=== PATIENT | male | born 1950 | race Caucasian/White ===

== ENCOUNTER 2022-02-09 13:30 | Outpatient (CLI) | payer OTHER, SELFPAY | END 2022-02-09 13:31 | disposition home or self-care (01) | PROVIDERS: PCP Family Medicine; Visit Provider Family Medicine | DX: M51.36 Other intervertebral disc degeneration, lumbar region (principal); M54.16 Radiculopathy, lumbar region | CPT/HCPCS: 62323; J0702; Q9966 ==

== ENCOUNTER 2022-08-24 09:08 | Outpatient (CLI) | payer OTHER, SELFPAY | END 2022-08-24 09:09 | disposition home or self-care (01) | LOC: INJ CL 09:09 | PROVIDERS: PCP Family Medicine; Visit Provider Family Medicine | DX: M54.16 Radiculopathy, lumbar region (principal); M51.36 Other intervertebral disc degeneration, lumbar region | CPT/HCPCS: 64483; J1100; Q9966 ==

== ENCOUNTER 2022-12-16 16:01 | Emergency (ER) | payer OTHER, SELFPAY ==
[2022-12-16 16:10] VITALS: BP 165/83; PULSE 52; RESP 24; TEMP 36; O2SAT 96; BMI 30.7
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
--- NOTE | 2022-12-16 16:52 | CRLHL7_ITS ---
For Patients: As a result of the Century Cures Act, medical imaging exams and procedure reports are released immediately into your electronic medical record. You may view this report before your referring provider. If you have questions, please contact your health care provider. INDICATION: Severe low left abdominal and inguinal pain TECHNIQUE: Axial images were obtained from the diaphragm to the pubic symphysis. Reformats were obtained in the coronal and sagittal plane. IV Contrast: 100 cc Isovue 370 Oral Contrast: None COMPARISON: None. FINDINGS: Lower chest: Minimal bibasilar discoid atelectasis. Liver: Liver is normal in contour with a 2.0 centimeter cyst within the right lobe of the liver. Gallbladder and bile ducts: Unremarkable. No stones or inflammation. No biliary dilatation. Spleen: Unremarkable. Normal in size without mass. Pancreas: Unremarkable. No mass or inflammation. Adrenal glands: Unremarkable. No nodules. Kidneys: Symmetric renal enhancement with extensive nephrolithiasis and renal cysts. Moderate left hydronephrosis with obstructing stone involving the distal left ureter measuring 5 x 4 x 9 millimeters. No hydronephrosis on the right. Vasculature: Atherosclerosis without abdominal aortic aneurysm. Status post inferior vena cava filter. Mild gastroepiploic and perigastric varices. GI tract: Stomach is decompressed. No dilated loops of large or small intestine with a large amount of stool noted within the colon. Mild colonic diverticulosis. Pelvis: Fat containing right direct inguinal hernia. Bones: Status post plate and screw fixation of the left acetabulum and left superior pubic ramus. IMPRESSION: 1. Nephrolithiasis with moderate left hydronephrosis and obstructing distal left ureteral stone measuring 5 x 4 x 9 millimeters. 2. Mild colonic diverticulosis. Please note that all CT scans at this facility use dose modulation, iterative reconstruction, and/or weight-based dosing when appropriate to reduce radiation dose to as low as reasonably achievable. Dictated by Kenyon Foy MD @ 12/16/2022 7:19:14 PM (Electronically Signed)
[2022-12-16] MEDS: 0.9 % SODIUM CHLORIDE 1000 ml 1,000 ML IV (17:05)
[2022-12-16] MEDS: KETOROLAC 30 MG/ML inj IVP (17:09)
[2022-12-16] MEDS: ONDANSETRON 2 MG/ML inj 4 MG IVP (17:11)
[2022-12-16] MEDS: fentaNYL 100 MCG/2 ML inj 50 MCG IVP (17:12)
[2022-12-16 17:16] VITALS: O2SAT 99
[2022-12-16 17:23] LABS: Lactate* 2.5 mmol/L (0.5-1.9)
[2022-12-16 17:24] LABS: Basophils Percent Auto 0.3 % (0.0-3.0); Eosinophils Percent Auto 1.2 % (0.0-7.0); Hematocrit 50.4 % (37.0-53.0); Hemoglobin* 16.9 gm/dL (13.5-17.5); Immature Granulocytes Pct Auto 0.4 %; Lymphocytes Percent Auto 16.3 % (20-44); Mean Corpuscular HGB Conc 34 gm/dL (32-36); Mean Corpuscular Hemoglobin 31 pg (26-34); Mean Corpuscular Volume 94 fL (80-100); Monocytes Percent Auto 5.7 % (0.0-11.0); Neutrophils Percent Auto 76.1 % (42.0-72.0); Platelet Count* 169 K/uL (140-440); RDW Coefficient of Variation % 12.6 % (11.5-15.5); Red Blood Count 5.38 m/uL (4.30-5.90); White Blood Count* 13.62 K/uL (4.50-11.00)
[2022-12-16 17:36] LABS: Slide Review Reflex No
[2022-12-16 17:42] LABS: Chloride* 106 mmol/L (96-114); Sodium* 139 mmol/L (135-149)
[2022-12-16 17:45] LABS: Creatinine* 1.2 mg/dL (0.5-1.5); Est. Creatinine Clearance* 61.01; Estimated Glomerular Filt Rate 65 ml/min
[2022-12-16 17:46] LABS: Blood Urea Nitrogen* 17 mg/dL (7-30); Calcium* 11.3 mg/dL (8.4-10.6); Carbon Dioxide* 24 mmol/L (20-32); Glucose* 152 mg/dL (60-115)
[2022-12-16 19:17] VITALS: BP 152/87; PULSE 72; RESP 18; O2SAT 97
[2022-12-16 19:18] LABS: Appearance Urine Cloudy (Clear); Bilirubin Urine 1+ (Negative); Blood Urine 3+ (Negative); Color Urine Dark yellow (Yellow); Glucose Urine Negative (Negative); Ketones Urine Trace (Negative); Leukocyte Esterase Urine Trace (Negative); Nitrite Urine Negative (Negative); Protein Urine 2+ (Negative); Specific Gravity Urine >= 1.030 (1.000-1.030); Urobilinogen Urine 0.2 (0.2-1.0); pH Urine 5.5 (5.0-8.5)
[2022-12-16 19:28] LABS: Bacteria Urine Few; RBC Urine 25-50 (0-2)
[2022-12-16 19:29] LABS: Calcium Oxalate Crystals Urine Few
[2022-12-16 20:34] VITALS: BP 167/87; PULSE 66; RESP 18; TEMP 36.1; O2SAT 98
[2022-12-16] MEDS: TAMSULOSIN HCL 0.4 MG CAPSULE PO (20:44)
== END 2022-12-16 21:04 | disposition home or self-care (01) ==
PROVIDERS: Emergency Provider Family Medicine; PCP Family Medicine
DX: N20.1 Calculus of ureter (principal); K59.00 Constipation, unspecified
CPT/HCPCS: 36415; 74177; 80048; 81001; 83605; 85025; 86140; 87086; 94761; 96374; 96375; 99284; A9270; J1885; J2405; J3010; J7030; Q9967

== ENCOUNTER 2023-03-14 08:54 | Outpatient (CLI) | payer OTHER, SELFPAY ==
--- NOTE | 2023-03-14 08:45 | CRLHL7_ITS ---
For Patients: As a result of the Century Cures Act, medical imaging exams and procedure reports are released immediately into your electronic medical record. You may view this report before your referring provider. If you have questions, please contact your health care provider. CLINICAL HISTORY: hx of left kidney stones, surgical removal and stent placed/removed. continued pain. COMPARISON: CT 12/16/2022 TECHNIQUE: Hahn scale and color Doppler images were acquired of the kidneys and urinary bladder. FINDINGS: Resolution of previously noted left-sided hydronephrosis. Bilateral renal stones are again noted. Stones on the right measure up to 1.9 cm. Stones on the left measure up to 1.8 cm. The right kidney measures 13.7cm in length and the left kidney measures 13.4cm in length. The renal cortex appears of normal thickness. Multiple renal cysts are present measuring up to 2.8 cm on the right and measuring 1.8 cm on the left. Normal color Doppler flow to both kidneys. The urinary bladder appears normal. Color Doppler images reveal a normal appearance of both ureteral jets. There is no evidence of bladder calculi or diverticula. IMPRESSION: Clearing of previously noted left-sided hydronephrosis. Bilateral renal stones again noted. Incidental renal cysts. No perinephric fluid. Normal bladder. Dictated by Alexsander Renee MD @ 03/14/2023 11:26:46 AM (Electronically Signed)
== END 2023-03-14 08:55 | disposition home or self-care (01) ==
LOC: US 08:55
PROVIDERS: PCP Family Medicine; Visit Provider Urology
DX: N20.0 Calculus of kidney (principal)
CPT/HCPCS: 76770

== ENCOUNTER 2023-03-15 09:00 | Outpatient (RCR) | payer OTHER, SELFPAY | END 2023-05-31 09:31 | disposition home or self-care (01) | PROVIDERS: PCP Family Medicine; Visit Provider Nurse Practitioner Family | DX: M54.50 Low back pain, unspecified (principal); M25.552 Pain in left hip; M62.81 Muscle weakness (generalized); R29.3 Abnormal posture; Z51.89 Encounter for other specified aftercare | CPT/HCPCS: 97110; 97162; 97530 ==

== ENCOUNTER 2023-05-30 14:28 | Emergency (ER) | payer OTHER, SELFPAY ==
[2023-05-30 15:13] VITALS: BP 179/90; PULSE 73; RESP 26; TEMP 36.4; O2SAT 99
--- NOTE | 2023-05-30 15:49 | ED_ITS ---
HPI - General Adult General Time Seen by Provider: 15:49 Date Seen: 05/30/23 Chief complaint: Flank Pain Stated complaint: Sharp L side pain Time Seen by Provider: 05/30/23 15:48 Source: patient, family, RN notes reviewed and old records reviewed Mode of arrival: ambulatory Limitations: no limitations History of Present Illness HPI narrative: 72-year-old male lb in left left-sided flank pain. Patient has a history of kidney stones and has stenting and procedure schedule next that week for that. Patient presents today with left-sided low back pain and abdominal pain. Patient with prior history of left-sided back pain and has had what sounds like epidural injections as well as evaluation for an ablations done in the past, increased pain in this area today. He thinks he may have ?tweaked it? when working on the furnace a couple days ago. Takes oxycodone every 6 hours as needed and did take that prior to coming the emergency department. No bowel or bladder dysfunction, denies diarrhea constipation, denies radiation of pain into the leg, denies weakness or numbness of the leg. Related Data Home Medications Medication Instructions Recorded Confirmed oxycodone-acetaminophen 7.5 mg-325 1 tab PO QID PRN 12/16/22 12/16/22 mg tablet tramadol 50 mg tablet 50 mg PO Q6H PRN 12/16/22 12/16/22 Previous Rx's Medication Instructions Recorded ketorolac 10 mg tablet 10 mg PO QID PRN pain 5 days #20 12/16/22 tabs ondansetron 4 mg disintegrating 4 mg PO DAILY PRN nausea and 12/16/22 tablet vomiting #12 tabs oxycodone-acetaminophen 7.5 mg-325 1 - 2 tab PO Q6H PRN severe pain 12/16/22 mg tablet (Endocet) #15 tabs tamsulosin 0.4 mg capsule (Flomax) 0.4 mg PO DAILY #15 caps 12/16/22 cefdinir 300 mg capsule 300 mg PO Q12H 10 days #20 caps 05/30/23 Allergies Allergy/AdvReac Type Severity Reaction Status Date / Time No Known Drug Allergies Allergy Verified 05/30/23 17:30 PFSH PFSH Social History Smoking Status: Current some day smoker What tobacco products do you use: cigars Do you use any of these nicotine containing products: None Second hand tobacco smoke exposure: No How often do you have a drink containing alcohol: 4 or more times a week How many standard drinks containing alcohol do you have on a typical day: 3 or 4 How often do you have six or more drinks on one occasion: Less than monthly AUDIT-C Alcohol total score: 6 Non-prescribed substance use: marijuana (any form) service: Yes Exam Narrative: Exam Narrative: General: Well-developed and well-nourished, no acute distress Head: Atraumatic and normocephalic Eyes: Pupils are equal reactive, extraocular motions intact, conjunctiva clear ENT: External nose and ears are normal, posterior pharynx without erythema or exudate Neck: No midline cervical tenderness, full spontaneous range of motion the neck, trachea midline, no adenopathy Heart: Regular rate and rhythm no murmurs or thrills Lungs: Clear to auscultation bilaterally without wheezes or crackles Abdomen: LLQ tenderness and L low back tenderness Musculoskeletal: No tenderness, deformity, or edema Neurologic: Awake, alert, and oriented x3, no gross focal neurologic deficits, cranial nerves intact as tested Psych: Mood and affect are appropriate Skin: No rashes Const: Vital Signs, click to edit/add: Vital Signs - 24 hr 05/30/23 15:13 Temperature 97.5 F L Pulse Rate [Right Pulse Oximeter] 73 Respiratory Rate 26 H Blood Pressure [Ri ght Upper Arm] 179/90 H Pulse Oximetry 99 Oxygen Delivery Me thod Room Air Course Course ED Course: Patient seen examined, prior records reviewed. Patient with history of kidney stones and low back pain. Two known stones on the right for which he is getting treatment next week, pain today is left sided, which he has had in the past. May have sustained a mild injury while working on the furnace a couple days ago. No fever, no leg weakness, no decreased sensation. Some improvement with Toradol, labs and CT ordered along with Dilaudid IV. Patient sees Dr. Pineda at [facility]. Reevaluation(s) Time of Reevaluation #1: 18:14 Reevaluation #1: Labs independently interpreted by me with leukocytosis, stable hemoglobin, stable creatinine for the patient normal basic panel otherwise, urinalysis with blood and with white cells out of proportion to number of RBCs, nitrite negative. CT scan independently interpreted by me demonstrates left-sided hydronephrosis with cluster of stones in the left distal ureter. Will discuss with urology. Time of Reevaluation #2: 18:41 Reevaluation #2: Radiology interpretation of CT scan is reviewed: 1. Small stone in the left UVJ and stone or several stones in the distal left ureter causing left-sided hydronephrosis. 2. Bilateral nephrolithiasis. Infundibular stones in the right kidney appear to cause localized caliceal dilation. 3. Thickening of the wall of the right renal pelvis is likely due to inflammation however neoplasm cannot be excluded. As patient has bilateral stones with obstruction on the left and calyceal dilatation on the right, as well as signs of infection, will discuss with urology. Time of Reevaluation #3: 19:45 Reevaluation #3: Updated patient spouse with plan to hold in the emergency department until the morning and transfer to [facility] either for admission to [facility] floor with plan for urology consultation and stent placement, or to pre anesthesia care unit for stent placement. Patient initially was agreeable this plan, however after antibiotics were done he asked to be discharged. We discussed risks of discharge including please pain, missed opportunity to treat fever or i ntervening on emergent worsening condition. Patient verbalized understanding of this and wants leave against medical advice instead of waiting in the emergency department to be transferred to [place]. Consultations Consultation #1: Dr. Galloway, [place] [facility]- recommends transfer to [facility], antibiotics, NPO after midnight, and plan for stent tomorrow given new left-sided stones. Spoke with [facility], no beds available, patient on wait list but may not be able to be transferred tonight. Vital Signs Vital signs: Initial Vital Signs Temperature 97.5 F L 05/30/23 15:13 Temperature Source Oral 05/30/23 15:13 Pulse Rate 73 05/30/23 15:13 Pulse Rhythm Regular 05/30/23 15:13 Pulse Strength 3+ Normal 05/30/23 15:13 Respiratory Rate 26 H 05/30/23 15:13 Blood Pressure 179/90 H 05/30/23 15:13 Blood Pressure Mean 119 H 05/30/23 15:13 Pulse Oximetry 99 05/30/23 15:13 Oxygen Delivery Method Room Air 05/30/23 15:13 Vital Signs Temperature 97.5 F L 05/30/23 15:13 Pulse Rate 73 05/30/23 15:13 Respiratory Rate 26 H 05/30/23 15:13 Blood Pressure 179/90 H 05/30/23 15:13 Pulse Oximetry 99 05/30/23 15:13 Oxygen Delivery Method Room Air 05/30/23 15:13 Temperature 97.5 F L 05/30/23 15:13 Pulse Rate 73 05/30/23 15:13 Respiratory Rate 26 H 05/30/23 15:13 Blood Pressure 179/90 H 05/30/23 15:13 Pulse Oximetry 99 05/30/23 15:13 Oxygen Delivery Method Room Air 05/30/23 15:13 Medical Decision Making Lab Data Labs: Lab Results 05/30/23 05/30/23 Range/Units 15:51 16:00 WBC 12.75 H (4.50-11.00) K/uL RBC 5.52 (4.30-5.90) m/uL Hgb 17.0 (13.5-17.5) gm/dL Hct 51.0 (37.0-53.0) % MCV 92 (80-100) fL MCH 31 (26-34) pg MCHC 33 (32-36) gm/dL RDW Coeff of Melany 13.1 (11.5-15.5) % Plt Count 179 (140-440) K/uL Neut % (Auto) 81.9 H (42.0-72.0) % Lymph % (Auto) 12.3 L (20-44) % [place] % (Auto) 4.5 (0.0-11.0) % Eos % (Auto) 0.7 (0.0-7.0) % Baso % (Auto) 0.2 (0.0-3.0) % Neut # (Auto) 10.40 H (1.7-7.0) K/uL Lymph # (Auto) 1.60 (0.90-2.90) K/uL [place] # (Auto) 0.60 (0.00-0.90) K/UL Eos # (Auto) 0.10 (0.00-0.50) K/uL Baso # (Auto) 0.00 (0.00-0.30) K/uL Abs Immat Gran (auto) 0.10 (0.00-0.30) K/uL Imm/Tot Granulo (auto) 0.4 % Sodium 139 (135-149) mmol/L Potassium 4.1 (3.6-5.1) mmol/L Chloride 107 (96-114) mmol/L Carbon Dioxide 20 (20-32) mmol/L Anion Gap 12 (7-15) mEq/L BUN 19 (7-30) mg/dL Creatinine 1.2 (0.5-1.5) mg/dL Estimated GFR 65 ml/min Glucose 166 H (60-115) mg/dL Calcium 11.1 H (8.4-10.6) mg/dL Urine Color Yellow (Yellow) Urine Appearance Cloudy A (Clear) Urine pH 6.0 (5.0-8.5) Ur Specific [place] 1.025 (1.000-1.030) Urine Protein 3+ A (Negative) Urine Glucose (UA) Negative (Negative) Urine Ketones 2+ A (Negative) Urine Blood 2+ A (Negative) Urine Nitrite Negative (Negative) Urine Bilirubin Negative (Negative) Urine Urobilinogen 0.2 (0.2-1.0) Ur Leukocyte Esterase 3+ A (Negative) Urine RBC 10-25 A (0-2) Urine WBC 25-50 A (0-5) Ur Squamous Epith Cells Few (None-Few) Urine Bacteria Few A (None) Discharge Plan Discharge Clinical Impression: Urinary tract infection, Calculus of right kidney, Calculus of left ureter Patient Disposition: Left Against Medical Advice Condition: Stable Instructions: Urinary Tract Infection in Men (DC), Ureteral Stones (ED) Additional Instructions: Take antibiotics as prescribed. Follow-up with your urologist. If your pain increases, or you develop fever or other symptoms, return to the emergency department. If able, you should go to an emergency department where your urologist can see you, preferably [facility]. If you are unable to go that far, you can return to the [facility] at any time for care. You may take 1-1/2 tablet severe pain medicine if needed, or you may take 1 tablet every 4 hours Activity Level: Activity as Tolerated Discharge Diet: Regular Prescriptions: New cefdinir 300 mg capsule 300 mg PO Q12H 10 Days Qty: 20 0RF No Action tramadol 50 mg tablet 50 mg PO Q6H PRN oxycodone-acetaminophen 7.5-325 mg tablet 1 tab PO QID PRN ketorolac 10 mg tablet 10 mg PO QID PRN (Reason: pain) 5 Days Qty: 20 0RF tamsulosin [Flomax] 0.4 mg capsule 0.4 mg PO DAILY Qty: 15 0RF oxycodone-acetaminophen [Endocet] 7.5-325 mg tablet 1 - 2 tab PO Q6H PRN (Reason: severe pain) Qty: 15 0RF ondansetron 4 mg tablet,disintegrating 4 mg PO DAILY PRN (Reason: nausea and vomiting) Qty: 12 0RF Follow Up/Referrals: [place] Wise MD [Primary Care Provider] - Stand Alone [facility] Instructions
[2023-05-30] MEDS: KETOROLAC 15 MG/ML inj IVP (15:59)
[2023-05-30 16:11] LABS: Appearance Urine Cloudy (Clear); Bilirubin Urine Negative (Negative); Blood Urine 2+ (Negative); Color Urine Yellow (Yellow); Glucose Urine Negative (Negative); Ketones Urine 2+ (Negative); Leukocyte Esterase Urine 3+ (Negative); Nitrite Urine Negative (Negative); Protein Urine 3+ (Negative); Specific Gravity Urine 1.025 (1.000-1.030); Urobilinogen Urine 0.2 (0.2-1.0)
[2023-05-30 16:20] LABS: Basophils Percent Auto 0.2 % (0.0-3.0); Eosinophils Percent Auto 0.7 % (0.0-7.0); Immature Granulocytes Pct Auto 0.4 %; Lymphocytes Percent Auto 12.3 % (20-44); Mean Corpuscular HGB Conc 33 gm/dL (32-36); Mean Corpuscular Hemoglobin 31 pg (26-34); Mean Corpuscular Volume 92 fL (80-100); Monocytes Percent Auto 4.5 % (0.0-11.0); Neutrophils Percent Auto 81.9 % (42.0-72.0); Platelet Count* 179 K/uL (140-440); RDW Coefficient of Variation % 13.1 % (11.5-15.5); Red Blood Count 5.52 m/uL (4.30-5.90); White Blood Count* 12.75 K/uL (4.50-11.00)
[2023-05-30 16:21] LABS: Slide Review Reflex No
--- NOTE | 2023-05-30 16:28 | CRLHL7_ITS ---
For Patients: As a result of the Century Cures Act, medical imaging exams and procedure reports are released immediately into your electronic medical record. You may view this report before your referring provider. If you have questions, please contact your health care provider. INDICATION: Left lower quadrant pain, left low back pain, history of kidney stones TECHNIQUE: CT abdomen and pelvis acquired with 110 mL Isovue 370 IV contrast. COMPARISON: 12/16/[address] FINDINGS: Lower chest: Unremarkable. Liver: Right hepatic lobe cyst. Gallbladder and bile ducts: Unremarkable. No stones or inflammation. No biliary dilatation. Pancreas: Unremarkable. No mass or inflammation. Spleen: Unremarkable. Normal in size. No masses. Adrenal glands: Unremarkable. No nodules. Kidneys: Stone or stones in the distal left ureter measuring 4 mm in diameter and 18 mm in length. 3 mm left UVJ stone. Moderate left-sided hydronephrosis. Mild perirenal edema. Several stones in the lower pole of the left kidney. There are multiple dense stones within the right kidney including several in infundibula that appear to cause localized dilated calices in the upper and mid kidney. The largest is an upper pole infundibulum measuring 2.0 x 0.9 cm. Thickening of the wall of the right renal pelvis. GI tract: Mild colonic diverticulosis. No diverticulitis normal appendix. Vasculature: IVC filter in place. Mesenteric arteries are patent. Lymph nodes: No lymphadenopathy. Omentum/Peritoneum/Abdominal Wall: Small umbilical hernia containing a loop of small bowel. No free air or significant free fluid. Pelvis: Unremarkable. Bones: Left acetabular reconstruction. IMPRESSION: 1. Small stone in the left UVJ and stone or several stones in the distal left ureter causing left-sided hydronephrosis. 2. Bilateral nephrolithiasis. Infundibular stones in the right kidney appear to cause localized caliceal dilation. 3. Thickening of the wall of the right renal pelvis is likely due to inflammation however neoplasm cannot be excluded. 4. Umbilical hernia containing unobstructed small bowel. Please note that all CT scans at this facility use dose modulation, iterative reconstruction, and/or weight-based dosing when appropriate to reduce radiation dose to as low as reasonably achievable. Dictated by Brian Burch MD @ 05/30/2023 6:34:18 PM (Electronically Signed)
--- NOTE | 2023-05-30 16:28 | CRLHL7_ITS ---
For Patients: As a result of the Century Cures Act, medical imaging exams and procedure reports are released immediately into your electronic medical record. You may view this report before your referring provider. If you have questions, please contact your health care provider. INDICATION: Left low back pain. TECHNIQUE: Noncontrast CT lumbar spine. FINDINGS: Five lumbar vertebrae. No lumbar spine fracture. Mild to moderate endplate hypertrophy throughout the lumbar spine. Mild multilevel disc bulging. Canal and neural foramina are patent. Os acetabulum reconstruction hardware. Bilateral nephrolithiasis and left hydronephrosis better evaluated on the abdomen pelvis CT of the same day. Impression: No acute lumbar spine findings. Mild degenerative change. Please note that all CT scans at this facility use dose modulation, iterative reconstruction, and/or weight-based dosing when appropriate to reduce radiation dose to as low as reasonably achievable. Dictated by Brian Burch MD @ 05/30/2023 6:39:02 PM (Electronically Signed)
[2023-05-30 16:35] LABS: Bacteria Urine Few; Squamous Epithelial Cell Urine Few (None-Few); WBC Urine 25-50 (0-5)
[2023-05-30 16:37] LABS: Chloride* 107 mmol/L (96-114); Potassium* 4.1 mmol/L (3.6-5.1); Sodium* 139 mmol/L (135-149)
[2023-05-30 16:40] LABS: Blood Urea Nitrogen* 19 mg/dL (7-30); Carbon Dioxide* 20 mmol/L (20-32); Creatinine* 1.2 mg/dL (0.5-1.5); Estimated Glomerular Filt Rate 65 ml/min; Glucose* 166 mg/dL (60-115)
[2023-05-30 16:41] LABS: Calcium* 11.1 mg/dL (8.4-10.6)
[2023-05-30] MEDS: dexAMETHasone 10 MG/ML inj IVP (16:41)
[2023-05-30] MEDS: HYDROmorphone 0.5 mg/0.5 ml inj IVP (16:42)
[2023-05-30 16:43] LABS: Anion Gap 12 mEq/L (7-15)
[2023-05-30] MEDS: cefTRIAXone 1 GM in 0.9 % SODIUM CHLORIDE Mini-bag 100 ML IVPB (19:05)
== END 2023-05-30 20:04 | disposition left against medical advice (07) ==
PROVIDERS: Emergency Provider Family Medicine; PCP Family Medicine
DX: N39.0 Urinary tract infection, site not specified (principal); N20.2 Calculus of kidney with calculus of ureter
CPT/HCPCS: 36415; 72131; 74177; 80048; 81001; 85025; 87086; 87186; 96365; 96375; 99284; 99285; J0696; J1100; J1170; J1885; Q9967

== ENCOUNTER 2023-08-09 07:03 | Outpatient (CLI) | payer OTHER, SELFPAY ==
--- NOTE | 2023-08-09 07:15 | CRLHL7_ITS ---
For Patients: As a result of the Century Cures Act, medical imaging exams and procedure reports are released immediately into your electronic medical record. You may view this report before your referring provider. If you have questions, please contact your health care provider. CLINICAL HISTORY: KIDNEYS STONES COMPARISON: 03/14/2023 TECHNIQUE: Hahn scale and color Doppler images were acquired of the kidneys and urinary bladder. FINDINGS: 1.4 cm echogenic and shadowing stone in the midportion of the right kidney. 1 cm stone helpful the left kidney. No hydronephrosis. Simple cyst midportion left kidney measuring 2.4 x 1.9 x 2.0 cm. Exophytic simple cyst midportion right kidney measuring 2.5 x 2.2 x 2.8 cm. The right kidney measures 13.6cm in length and the left kidney measures 14.6cm in length. The renal cortex appears of normal thickness. The urinary bladder appears normal. Color Doppler images reveal a normal appearance of both ureteral jets. There is no evidence of bladder calculi or diverticula. Bladder wall measures 3 millimeters. Prevoid bladder volume 88 cc. IMPRESSION: Nonobstructing renal calculi bilaterally. Simple bilateral renal cysts. Dictated by Alexsander Renee MD @ 08/09/2023 9:08:55 AM (Electronically Signed)
== END 2023-08-09 07:04 | disposition home or self-care (01) ==
LOC: US 07:03
PROVIDERS: PCP Family Medicine; Visit Provider Urology
DX: N20.0 Calculus of kidney (principal); N28.1 Cyst of kidney, acquired
CPT/HCPCS: 76775

== ENCOUNTER 2023-09-12 06:24 | Outpatient (CLI) | payer OTHER, SELFPAY ==
--- NOTE | 2023-09-12 08:09 | W.ANESCHARGE ---
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
== END 2023-09-12 06:25 | disposition home or self-care (01) ==
LOC: OP CLINIC 06:25
PROVIDERS: PCP Family Medicine; Visit Provider Internal Medicine Gastroenterology
DX: K63.5 Polyp of colon (principal); K57.30 Diverticulosis of large intestine without perforation or abscess without bleeding; Z86.010 Personal history of colon polyps
CPT/HCPCS: 00811; 45380; 45385; 88305; 99100; J2704; J3490

== ENCOUNTER 2024-12-14 09:01 | Outpatient (CLI) | payer MEDICARE, SELFPAY ==
--- NOTE | 2024-12-14 10:01 | P.ANES_ITS ---
Anesthesia Charges Start Date/Time Anesthesia Start Date: 12/14/24 Anesthesia Start Time: 09:33 Stop Date/Time Anesthesia Stop Date: 12/14/24 Anesthesia Stop Time: 09:59 Coding CPT Codes CPT Codes: ANES LWR INTST NDSC NOS - 32786 ([id number]) P3 - PATIENT W/SEVERE SYS DISEASE, QK - DEPLOYMENT TECHNICIAN 2-4 CNCRNT ANES PROC, QX - TILE AND MARBLE INSTALLER SVC W/ MD MED DIRECTION
--- NOTE | 2024-12-14 10:01 | W.ANESCHARGE ---
Anesthesia Charges Start Date/Time Anesthesia Start Date: 12/14/24 Anesthesia Start Time: 09:33 Stop Date/Time Anesthesia Stop Date: 12/14/24 Anesthesia Stop Time: 09:59 Coding CPT Codes CPT Codes: ANES LWR INTST NDSC NOS - 43021 ([id number]) P3 - PATIENT W/SEVERE SYS DISEASE, QK - SUPERVISOR INSTRUMENT MAINTENANCE 2-4 CNCRNT ANES PROC, QX - SHIPPING AND RECEIVING SPECIALIST SVC W/ MD MED DIRECTION
--- NOTE | 2024-12-14 10:31 | W.ANESCHARGE ---
Anesthesia Charges Start Date/Time Anesthesia Start Date: 12/14/24 Anesthesia Start Time: 09:33 Stop Date/Time Anesthesia Stop Date: 12/14/24 Anesthesia Stop Time: 09:59 Summary Extremes of Age - Over 70 or under 1: MDA Coding CPT Codes CPT Codes: ANES LWR INTST NDSC NOS - 10912 ([id number]) QK - ESTABLISHMENT GUIDE 2-4 CNCRNT ANES PROC, QX - OCCUPATIONAL THERAPY ASSISTANT SVC W/ MD MED DIRECTION, P3 - PATIENT W/SEVERE SYS DISEASE Additional Codes: Summary - Extremes of Age - Over 70 or under 1: MDA ([id number])
== END 2024-12-14 09:02 | disposition home or self-care (01) ==
PROVIDERS: PCP Family Medicine; Visit Provider Internal Medicine Gastroenterology
DX: D12.3 Benign neoplasm of transverse colon (principal); Z86.0101 Personal history of adenomatous and serrated colon polyps
CPT/HCPCS: 00811; 45380; 88305; 99100; J2704